=== PATIENT | female | born 2000 | race African-American/Black ===

== ENCOUNTER 2022-07-31 08:00 | Outpatient (CLI) | payer OTHER ==
[2022-07-31 18:10] LABS: BASOPHILS # (AUTO) 0.1 10^3/uL (0.0-0.1); BASOPHILS % (AUTO) 0.6 %; EOSINOPHILS # (AUTO) 0.1 10^3/uL (0.0-0.7); HCT - HEMATOCRIT 38.7 % (37.0-47.0); HGB - HEMOGLOBIN 12.3 g/dL (12.0-16.0); LYMPHOCYTES # (AUTO) 2.5 10^3/uL (1.5-3.5); LYMPHOCYTES % (AUTO) 28.4 %; MEAN CORPUSCULAR HGB CONC 31.8 g/dL (32.0-36.0); MEAN CORPUSCULAR VOLUME 91.3 fL (81.0-99.0); MEAN PLATELET VOLUME 10.1 fL (7.9-10.8); MONOCYTES # (AUTO) 0.6 10^3/uL (0.0-1.0); MONOCYTES % (AUTO) 7.4 %; NEUTROPHILS # (AUTO) 5.4 10^3/uL (1.5-6.6); NEUTROPHILS % (AUTO) 62.3 %; PLT - PLATELET COUNT 306 10^3/uL (130-450); RED BLOOD COUNT 4.24 10^6/uL (4.20-5.40); RED CELL DISTRIBUTION WIDTH 11.9 % (12.0-15.0); WHITE BLOOD COUNT 8.7 x10^3/uL (4.8-10.8)
[2022-07-31 18:22] LABS: ALBUMIN 4.5 g/dL (3.2-5.5); ALBUMIN/GLOBULIN RATIO 1.4 (1.0-2.2); BILIRUBIN,TOTAL 0.3 mg/dL (0.2-1.0); CALCIUM 9.4 mg/dL (8.5-10.3); CREATININE 0.7 mg/dL (0.4-1.0); POTASSIUM 4.1 mmol/L (3.5-5.0); TOTAL PROTEIN 7.7 g/dL (6.7-8.2)
[2022-07-31 18:34] LABS: HCG,QUALITATIVE BLOOD NEGATIVE
== END 2022-07-31 23:59 | disposition home or self-care (01) ==
LOC: LAB.N 08:00
PROVIDERS: ATTEND Nurse Practitioner
DX: N94.6 Dysmenorrhea, unspecified (principal)
CPT/HCPCS: 36415; 80053; 84703; 85025

== ENCOUNTER 2022-10-02 13:54 | Emergency (ER) | payer OTHER ==
[2022-10-02 14:10] VITALS: BP 135/78
--- OUTSIDE RECORDS SUMMARY | 2022-10-02 14:22 | EXTERNAL MEDICAL SUMMARY RPT | Continuity of Care Document ---
:2000 Author Organization [facility] Address [address] [place] [address] Phone Care Team Providers Name Role Phone Unavailable Unavailable Unavailable Kee Internist Medical Doctor Md Enp, Amber Unavailable Unavailable Allergies No information. Encounters No information. Functional Status No information. Immunizations No information. Medications date description facility 2022-07-31 00:00 diclofenac sodium All 2022-07-31 00:00 diclofenac sodium All 2022-07-31 00:00 diclofenac sodium All 2022-07-31 00:00 diclofenac sodium All Problems date description facility 2022-07-31 00:00 Dysmenorrhea All 2022-07-31 00:00 Dysmenorrhea, unspecified All Procedures date description facility 2022-07-31 00:00 Visit Code Hold All 2022-07-31 00:00 COMPREHENSIVE METABOLIC PANEL All 2022-07-31 00:00 hCG, Serum, Qualitative () Al l 2022-07-31 00:00 CBC W/Diff/Plt All Results/Labs test date author facility value unit interpret ation Result panel 1 (unknown) (no date) (unknown) All (no value) (units unknown ) (unknown) Result panel 2 (unknown) (no date) (unknown) All (no value) (units unknown ) (unknown) Result panel 3 (unknown) (no date) (unknown) All (no value) (units unknown ) (unknown) Result panel 4 (unknown) (no date) (unknown) All (no value) (units unknown ) (unknown) Result panel 5 (unknown) (no date) (unknown) All (no value) (units unknown ) (unknown) Result panel 6 (unknown) (no date) (unknown) All (no value) (units unknown ) (unknown) Result panel 7 (unknown) (no date) (unknown) All (no value) (units unknown ) (unknown) Result panel 8 (unknown) (no date) (unknown) All (no value) (units unknown ) (unknown) Result panel 9 (unknown) (no date) (unknown) All (no value) (units unknown ) (unknown) Result panel 10 (unknown) (no date) (unknown) All (no value) (units unknown ) (unknown) Result panel 11 (unknown) (no date) (unknown) All (no value) (units unknown ) (unknown) Result panel 12 (unknown) (no date) (unknown) All (no value) (units unknown ) (unknown) Result panel 13 (unknown) (no date) (unknown) All (no value) (units unknown ) (unknown) Result panel 14 (unknown) (no date) (unknown) All (no value) (units unknown ) (unknown) Result panel 15 (unknown) (no date) (unknown) All (no value) (units unknown ) (unknown) Result panel 16 (unknown) (no date) (unknown) All (no value) (units unknown ) (unknown) Result panel 17 (unknown) (no date) (unknown) All (no value) (units unknown ) (unknown) Result panel 18 (unknown) (no date) (unknown) All (no value) (units unknown ) (unknown) Result panel 19 (unknown) (no date) (unknown) All (no value) (units unknown ) (unknown) Result panel 20 (unknown) (no date) (unknown) All (no value) (units unknown ) (unknown) Result panel 21 (unknown) (no date) (unknown) All (no value) (units unknown ) (unknown) Result panel 22 (unknown) (no date) (unknown) All (no value) (units unknown ) (unknown) Result panel 23 (unknown) (no date) (unknown) All (no value) (units unknown ) (unknown) Result panel 24 (unknown) (no date) (unknown) All (no value) (units unknown ) (unknown) Result panel 25 (unknown) (no date) (unknown) All (no value) (units unknown ) (unknown) Result panel 26 (unknown) (no date) (unknown) All (no value) (units unknown ) (unknown) Result panel 27 (unknown) (no date) (unknown) All (no value) (units unknown ) (unknown) Result panel 28 (unknown) (no date) (unknown) All (no value) (units unknown ) (unknown) Result panel 29 (unknown) (no date) (unknown) All (no value) (units unknown ) (unknown) Result panel 30 (unknown) (no date) (unknown) All (no value) (units unknown ) (unknown) Result panel 31 (unknown) (no date) (unknown) All (no value) (units unknown ) (unknown) Result panel 32 (unknown) (no date) (unknown) All (no value) (units unknown ) (unknown) Result panel 33 (unknown) (no date) (unknown) All (no value) (units unknown ) (unknown) Result panel 34 (unknown) (no date) (unknown) All (no value) (units unknown ) (unknown) Result panel 35 (unknown) (no date) (unknown) All (no value) (units unknown ) (unknown) Result panel 36 (unknown) (no date) (unknown) All (no value) (units unknown ) (unknown) Result panel 37 (unknown) (no date) (unknown) All (no value) (units unknown ) (unknown) Result panel 38 (unknown) (no date) (unknown) All (no value) (units unknown ) (unknown) Result panel 39 (unknown) (no date) (unknown) All (no value) (units unknown ) (unknown) Result panel 40 (unknown) (no date) (unknown) All (no value) (units unknown ) (unknown) Result panel 41 (unknown) (no date) (unknown) All (no value) (units unknown ) (unknown) Result panel 42 (unknown) (no date) (unknown) All (no value) (units unknown ) (unknown) Result panel 43 (unknown) (no date) (unknown) All (no value) (units unknown ) (unknown) Result panel 44 (unknown) (no date) (unknown) All (no value) (units unknown ) (unknown) Result panel 45 (unknown) (no date) (unknown) All (no value) (units unknown ) (unknown) Result panel 46 (unknown) (no date) (unknown) All (no value) (units unknown ) (unknown) Result panel 47 (unknown) (no date) (unknown) All (no value) (units unknown ) (unknown) Result panel 48 (unknown) (no date) (unknown) All (no value) (units unknown ) (unknown) Result panel 49 (unknown) (no date) (unknown) All (no value) (units unknown ) (unknown) Result panel 50 (unknown) (no date) (unknown) All (no value) (units unknown ) (unknown) Result panel 51 (unknown) (no date) (unknown) All (no value) (units unknown ) (unknown) Result panel 52 (unknown) (no date) (unknown) All (no value) (units unknown ) (unknown) Result panel 53 (unknown) (no date) (unknown) All (no value) (units unknown ) (unknown) Result panel 54 (unknown) (no date) (unknown) All (no value) (units unknown ) (unknown) Result panel 55 (unknown) (no date) (unknown) All (no value) (units unknown ) (unknown) Result panel 56 (unknown) (no date) (unknown) All (no value) (units unknown ) (unknown) Result panel 57 (unknown) (no date) (unknown) All (no value) (units unknown ) (unknown) Result panel 58 (unknown) (no date) (unknown) All (no value) (units unknown ) (unknown) Result panel 59 (unknown) (no date) (unknown) All (no value) (units unknown ) (unknown) Result panel 60 (unknown) (no date) (unknown) All (no value) (units unknown ) (unknown) Result panel 61 (unknown) (no date) (unknown) All (no value) (units unknown ) (unknown) Result panel 62 (unknown) (no date) (unknown) All (no value) (units unknown ) (unknown) Result panel 63 (unknown) (no date) (unknown) All (no value) (units unknown ) (unknown) Result panel 64 (unknown) (no date) (unknown) All (no value) (units unknown ) (unknown) Result panel 65 (unknown) (no date) (unknown) All (no value) (units unknown ) (unknown) Result panel 66 (unknown) (no date) (unknown) All (no value) (units unknown ) (unknown) Result panel 67 (unknown) (no date) (unknown) All (no value) (units unknown ) (unknown) Result panel 68 (unknown) (no date) (unknown) All (no value) (units unknown ) (unknown) Result panel 69 (unknown) (no date) (unknown) All (no value) (units unknown ) (unknown) Result panel 70 (unknown) (no date) (unknown) All (no value) (units unknown ) (unknown) Result panel 71 (unknown) (no date) (unknown) All (no value) (units unknown ) (unknown) Result panel 72 (unknown) (no date) (unknown) All (no value) (units unknown ) (unknown) Result panel 73 (unknown) (no date) (unknown) All (no value) (units unknown ) (unknown) Result panel 74 (unknown) (no date) (unknown) All (no value) (units unknown ) (unknown) Result panel 75 (unknown) (no date) (unknown) All (no value) (units unknown ) (unknown) Result panel 76 (unknown) (no date) (unknown) All (no value) (units unknown ) (unknown) Result panel 77 (unknown) (no date) (unknown) All (no value) (units unknown ) (unknown) Result panel 78 (unknown) (no date) (unknown) All (no value) (units unknown ) (unknown) Result panel 79 (unknown) (no date) (unknown) All (no value) (units unknown ) (unknown) Result panel 80 (unknown) (no date) (unknown) All (no value) (units unknown ) (unknown) Result panel 81 (unknown) (no date) (unknown) All (no value) (units unknown ) (unknown) Result panel 82 (unknown) (no date) (unknown) All (no value) (units unknown ) (unknown) Result panel 83 (unknown) (no date) (unknown) All (no value) (units unknown ) (unknown) Result panel 84 (unknown) (no date) (unknown) All (no value) (units unknown ) (unknown) Result panel 85 (unknown) (no date) (unknown) All (no value) (units unknown ) (unknown) Result panel 86 (unknown) (no date) (unknown) All (no value) (units unknown ) (unknown) Result panel 87 (unknown) (no date) (unknown) All (no value) (units unknown ) (unknown) Result panel 88 (unknown) (no date) (unknown) All (no value) (units unknown ) (unknown) Result panel 89 (unknown) (no date) (unknown) All (no value) (units unknown ) (unknown) Result panel 90 (unknown) (no date) (unknown) All (no value) (units unknown ) (unknown) Result panel 91 (unknown) (no date) (unknown) All (no value) (units unknown ) (unknown) Result panel 92 (unknown) (no date) (unknown) All (no value) (units unknown ) (unknown) Result panel 93 (unknown) (no date) (unknown) All (no value) (units unknown ) (unknown) Result panel 94 (unknown) (no date) (unknown) All (no value) (units unknown ) (unknown) Result panel 95 (unknown) (no date) (unknown) All (no value) (units unknown ) (unknown) Result panel 96 (unknown) (no date) (unknown) All (no value) (units unknown ) (unknown) Result panel 97 (unknown) (no date) (unknown) All (no value) (units unknown ) (unknown) Result panel 98 (unknown) (no date) (unknown) All (no value) (units unknown ) (unknown) Result panel 99 (unknown) (no date) (unknown) All (no value) (units unknown ) (unknown) Social History date description facility 2022-07-31 00:00 Unknown if ever smoked All 2022-08-01 00:00 Unknown if ever smoked All Vital Signs date measurement value units 2022-07-31 00:00 BMI 25.15 kg/m2 2022-07-31 00:00 BP_diastolic 74 mmHg 2022-07-31 00:00 BP_systolic 109 mmHg 2022-07-31 00:00 heart_rate 69 /min 2022-07-31 00:00 height_metric 170.18 cm 2022-07-31 00:00 height_standard 67 in 2022-07-31 00:00 respiration_rate 18 /min 2022-07-31 00:00 temperature_metric 37.11 C 2022-07-31 00:00 temperature_standard 98.8 F 2022-07-31 00:00 weight_metric 72.57 kg 2022-07-31 00:00 weight_standard 160 lb
[2022-10-02] MEDS ORDERED: IBUPROFEN 600 MG TABLET PO STA (16:17)
[2022-10-02 16:18] LABS: BILIRUBIN,URINE NEGATIVE (NEGATIVE); GLUCOSE, URINE (UA) NEGATIVE (NEGATIVE); KETONES,URINE (UA) NEGATIVE (NEGATIVE); LEUKOCYTE ESTERASE, URINE NEGATIVE (NEGATIVE); NITRITE,URINE NEGATIVE (NEGATIVE); OCCULT BLOOD,URINE MODERATE (NEGATIVE); PROTEIN,URINE NEGATIVE (NEGATIVE); UROBILINOGEN,URINE 0.2 (NORMAL) E.U./dL (NORMAL)
[2022-10-02 16:19] LABS: CLARITY,URINE CLEAR (CLEAR)
[2022-10-02 16:20] LABS: HCG UR QUAL NEGATIVE
--- NOTE | 2022-10-02 16:21 | ED Physician Documentation ---
History of Present Illness - Stated complaint Stated Complaint: ABD CRAMPS - Chief complaint Chief Complaint: Abd Pain - Additonal information Additional information: 21 female presents emergency department for evaluation of painful menstrual cramps. The cycle began a few days ago. States that she has always had painful cycles. [facility] to a walk-in clinic recently where she was prescribed diclofenac without relief of symptoms. She tries Midol and Tylenol as well. States that sometimes the pain causes nausea. Denies possibility of . Is not sexually active. States [facility] has been on helpful thus far she is scheduled to go out on a boat and does not feel that she will be able to do that without better pain control during her menstrual cycles Review of Systems Constitutional: denies: Fever, Chills GI: reports: Other (Abdominal cramping) : reports: Reviewed and negative Skin: reports: Reviewed and negative Musculoskeletal: reports: Reviewed and negative PD PAST MEDICAL HISTORY - Allergies Allergies/Adverse Reactions: Allergies Allergy/AdvReac Type Severity Reaction Status Date / Time No Known Drug Allergies Allergy Verified 10/02/22 14:09 PD ED PE NORMAL - General General: Alert and oriented X 3, No acute distress, Well developed/nourished - Cardiac Cardiac: RRR, No murmur - Respiratory Respiratory: No respiratory distress, Clear bilaterally - Abdomen Abdomen: Normal bowel sounds, Soft, Non tender - Back Back: No CVA TTP, No spinal TTP - Derm Derm: Normal color, Warm and dry, No rash - Extremities Extremities: No deformity, No tenderness to palpate, Normal ROM s pain - Neuro Neuro: Alert and oriented X 3, 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 She has found [employer] to be unhelpful. She has trialed various NSAIDs without relief. She is interested in having an implanted control device placed. On exam she has no abdominal tenderness elicited. Unremarkable vital signs for age. Urinalysis confirms that she is not therefore imaging was deferred as I am not suspicious for an ectopic. I have advised the patient to follow closely with [facility] to determine if she would benefit from referral for a Nexplanon or an IUD. At this time I am recommending Tylenol and ibuprofen for analgesia. Emergent return precautions discussed Departure - Departure Disposition: 01 Home, Self Care Clinical Impression: Painful menstrual periods Condition: Stable Record reviewed to determine appropriate education?: Yes Comments: It is important that you follow closely with [facility] for longer-term management of your painful menstrual cycles. If routine [id number] measures such as Tylenol 500 mg 3 times a day or ibuprofen 600 mg 3 times a day is not helpful you may benefit from discussing with them if control such as Nexplanon or an IUD would be helpful. You would require referral for this. Unfortunately the emergency department is not able to do these procedures.
[2022-10-02 16:27] LABS: BACTERIA,URINE None Seen /HPF (None Seen); RBC,URINE 0-5 /HPF (0-5); SQUAMOUS EPITHELIAL CELL,UR NONE SEEN (<= Few); WBC,URINE 0-3 /HPF (0-5)
== END 2022-10-02 16:27 | disposition home or self-care (01) ==
LOC: ED 13:54
DX: N94.6 Dysmenorrhea, unspecified (principal)
CPT/HCPCS: 81001; 81003; 81025; 87086; 99283